=== PATIENT | male | born 1955 ===

== ENCOUNTER 2021-05-21 05:33 | Inpatient (IN) | payer MEDICAID ==
[~2021-05-21] VITALS: Ht 185.4 cm; Wt 86.2 kg
[2021-05-21] MEDS ORDERED: HYDROMORPHONE 1 MG/1 ML DISP.SYRIN IV ONE (05:45)
[2021-05-21] MEDS ORDERED: CEFAZOLIN 1 G in IV DEXTROSE 5% 50 ML IV ONE (05:45)
[2021-05-21] MEDS ORDERED: IV NORMAL SALINE 1000 ML BAG IV ONE (05:45)
[2021-05-21] MEDS ORDERED: ONDANSETRON 4 MG/2 ML VIAL IV ONE (05:45)
--- NOTE | 2021-05-21 06:27 | NUR ---
REPORT GIVEN TO GEOVANY FELIX
[2021-05-21] MEDS ORDERED: VANCOMYCIN IV 1,000 MG in IV DEXTROSE 5% 250 ML IV ONE (06:45)
[2021-05-21 06:52] LABS: MEAN CORPUSCULAR HEMOGLOBIN 30.2 uug (23.8-33.4); PLATELET COUNT (AUTO) 173 K/uL (152-348)
[2021-05-21] MEDS: PANTOPRAZOLE SODIUM 40 MG TABLET.DR PO SCH (07:00)
[2021-05-21 07:20] LABS: BILIRUBIN,DIRECT 0.4 mg/dL (0.0-0.2); BILIRUBIN,TOTAL 1.4 mg/dL (0.2-1.0); CREATININE 1.6 mg/dL (0.6-1.3); POTASSIUM 3.5 mmol/L (3.5-5.1); TOTAL PROTEIN, SERUM 7.7 g/dL (6.4-8.2)
[2021-05-21] MEDS ORDERED: CEFAZOLIN 1 G VIAL ONE (07:24)
[2021-05-21] MEDS ORDERED: HYDROMORPHONE 2 MG/1 ML DISP.SYRIN ONE (07:25)
[2021-05-21] MEDS ORDERED: ONDANSETRON 4 MG/2 ML VIAL ONE (07:25)
[2021-05-21] MEDS ORDERED: VANCOMYCIN IV 200 ML ONE (07:26)
--- NOTE | 2021-05-21 07:30 | NUR ---
Assumed care for patient. No nurse to nurse report received from retail shift manager as there was no assigned nurse for this pt upon my arrival. Pt resting in gurney with eyes closed with no s/s of acute distress noted at this time. V/S: BP 159/91 HR 107 RR 18 Pulse ox 96% (RA).
--- NOTE | 2021-05-21 10:30 | NUR ---
spoke with Leonidas ([facility]), pt has been accepted for m/s admission, admission dx:cellulitis.
--- NOTE | 2021-05-21 10:40 | NUR ---
Pt resting with NAD noted. Pending M/S admission, no beds available at this time.
[2021-05-21] MEDS ORDERED: ACETAMINOPHEN 325 MG TABLET PO PRN (11:00)
[2021-05-21] MEDS ORDERED: IV NS 1000 ML 1,000 ML IV PRN (11:00)
[2021-05-21] MEDS ORDERED: ONDANSETRON 4 MG/2 ML VIAL IV PRN (11:00)
[2021-05-21] MEDS ORDERED: REMEDY ESSENTIAL ZINC PASTE 113 GM TP PRN (11:00)
[2021-05-21] MEDS ORDERED: HYDROCODONE/APAP 5-325MG TABLET PO PRN (11:00)
[2021-05-21] MEDS ORDERED: HYDROMORPHONE 1 MG/1 ML DISP.SYRIN IV PRN (11:00)
[2021-05-21] MEDS: CEFTRIAXONE 2 G in IV DEXTROSE 5% 100 ML IV SCH (11:33)
[2021-05-21] MEDS ORDERED: CEFTRIAXONE 1 G VIAL ONE (11:34)
--- NOTE | 2021-05-21 13:00 | NUR ---
Pt ate lunch with good appetite, NAD noted, VSS. Pt is anxous and somewhat agitated because he is worried about his car. Pt states he lives in his car and all his belongings are in the car. He states it is parked in a parking lot where the EMS picked him up last night. Pt does not know the exact location and I was unable to find any information about which EMS unit brought the pt in last night.
--- NOTE | 2021-05-21 15:30 | NUR ---
SBAR report given to Jayshree on m/s floor.
--- NOTE | 2021-05-21 15:50 | NUR ---
Pt trans to m/s floor, NAD noted.
--- NOTE | 2021-05-21 16:38 | NUR ---
65 YEAR OLD MALE RECEIVED FROM ER VIA GURNEY TO ROOM 316 FOR LLE CELLULITIS .PT IS AXOX2.CALL LIGHT WITH IN REACH VS ARE STABLE MD NOTIFIED FOR ADMISSION ORDERS
[2021-05-21 16:41] VITALS: BP 151/80
[2021-05-21 20:30] VITALS: BP 148/65
[2021-05-22] MEDS ORDERED: VANCOMYCIN IV 1,000 MG in IV DEXTROSE 5% 250 ML IV SCH (01:00)
[2021-05-22 04:41] VITALS: BP 142/64
[2021-05-22] MEDS: PANTOPRAZOLE SODIUM 40 MG TABLET.DR PO SCH (06:07)
[2021-05-22 07:07] LABS: HEMATOCRIT 34.3 % (36.7-47.1); MEAN CORPUSCULAR HEMOGLOBIN 29.8 uug (23.8-33.4); MEAN CORPUSCULAR VOLUME 87.1 fL (73.0-96.2); PLATELET COUNT (AUTO) 133 K/uL (152-348)
[2021-05-22 07:22] LABS: BILIRUBIN,TOTAL 0.9 mg/dL (0.2-1.0); CREATININE 1.4 mg/dL (0.6-1.3); MAGNESIUM 1.5 mg/dL (1.8-2.4); POTASSIUM 3.2 mmol/L (3.5-5.1); TOTAL PROTEIN, SERUM 6.1 g/dL (6.4-8.2)
[2021-05-22 07:25] LABS: NEUTROPHILS % (MANUAL) 0 % (42-75)
--- NOTE | 2021-05-22 07:45 | NUR ---
Received in bed responsive. No acute distress. Comfortable on room air. IVF infusing no infiltration noted on site. Appears comfortable. Bed low and locked. Siderails up x2. Call light in reach.
[2021-05-22] MEDS ORDERED: POTASSIUM CHLORIDE 20 MEQ TAB.PRT.SR PO ONE (09:15)
[2021-05-22] MEDS: MAGNESIUM SULFATE/D5W 100 ML IV SCH ×2 (09:23→10:32)
[2021-05-22 11:45] VITALS: BP 140/74
[2021-05-22] MEDS: CEFTRIAXONE 2 G in IV DEXTROSE 5% 100 ML IV SCH (11:45)
--- NOTE | 2021-05-22 11:51 | NUR ---
Clinical Social Work Note SW consult was requested for homelessness. SW met with 65 year old male who is alert and oriented x3. Patient presents with a depressed mood and congruent affect. SW inquired about patient's living situation. Per patient he has been living out of his car for years and currently his car is being towed from the [employer] center. Patient insisted that he needed to stop his car from being towed. SW helped find patient [address] number and patient stated that he will be calling. SW provided patient with homeless packet and discussed shelters. Patient stated that he would look through packet and would make a decision on a nursing home by himself. Patient stated that he does need TAP car to get to his car after he is discharge. Patient will sign homeless waiver upon discharge.
[2021-05-22] MEDS: VANCOMYCIN IV 1,250 MG in IV DEXTROSE 5% 250 ML IV SCH (13:09)
[2021-05-22 15:56] VITALS: BP 138/96
--- NOTE | 2021-05-22 18:05 | NUR ---
pt stated he does not have any home medications.
[2021-05-22 19:00] VITALS: BP 156/87
--- NOTE | 2021-05-22 19:00 | NUR ---
PATIENT ALERT ORIENTED, NO SOB NO CHEST PAIN, NO COMPLAIN OF PAIN AT THIS TIME, CONT TO MONITOR.
--- NOTE | 2021-05-22 22:56 | NUR ---
PATIENT CRAVING FOR CIGARETTES, NOTIFY AYSE FIELD HAULER WITH ORDER.
--- NOTE | 2021-05-22 22:57 | NUR ---
PATIENT HAS EPISODE OF SCREAMING, THINKING ABOUT HIS CAR, HIS CAR MARK, AND UPSET WITH THE POLICE DUE CONFISCATING HIS CAR MARK. COMPLAINING OF PAIN, GIVEN PAIN MEDS, AND WILL NOTIFY SW DUE TO CONCERN ABOUT HIS CAR.
[2021-05-22] MEDS: NICOTINE 14 MG/24HR PATCH TD SCH (23:11)
--- NOTE | 2021-05-23 00:59 | NUR ---
PATIENT HAS EPISODE OF AGITATION, YELLING AND SCREAMING, PULLED OUT HIS IV LINES, RN KINDERGARTEN PREP TEACHER SPOKE TO THE PATIENT IF HE WANTED TO LEAVE HE WILL BE DISCHARGE, OR IF HE WANTED STAY HE NEEDS TO BEHAVE, NO YELLING NO SCREAMING, AND BANGING THE TABLE. PATIENT PREFER TO STAY, AND AGREE WITH RULES OF THE HOSPITAL. NOTIFY NATHALIA HINES WITH ORDER OF ATIVAN 1MG IV ONCES FOR AGITATION.
[2021-05-23] MEDS ORDERED: LORAZEPAM 2 MG/1 ML VIAL IV ONE (01:00)
[2021-05-23] MEDS: VANCOMYCIN IV 1,250 MG in IV DEXTROSE 5% 250 ML IV SCH (04:21)
[2021-05-23 05:45] VITALS: BP 153/97
[2021-05-23] MEDS: PANTOPRAZOLE SODIUM 40 MG TABLET.DR PO SCH (06:22)
[2021-05-23 06:45] LABS: HEMATOCRIT 35.1 % (36.7-47.1); MEAN CORPUSCULAR HEMOGLOBIN 29.9 uug (23.8-33.4); MEAN CORPUSCULAR VOLUME 87.9 fL (73.0-96.2); PLATELET COUNT (AUTO) 156 K/uL (152-348)
--- NOTE | 2021-05-23 06:59 | NUR ---
PATIENT ASLEEP BUT AROUSABLE, PATIENT COOPERATIVE WITH CARE AT THIS TIME, NO YELLING NO SCREAMING, NO BEHAVIOR NOTED AT THIS TIME, PATIENT LLE HAS DRIED CELLULITIS, MEDICATED FOR PAIN AND COMFORT, NO ADVERSE REACTION NOTED FROM ATIVAN 1MG IV, ENDORSE TO NEXTG SHIFT.
[2021-05-23 07:13] LABS: CREATININE 1.4 mg/dL (0.6-1.3); MAGNESIUM 2.2 mg/dL (1.8-2.4); PHOSPHOROUS 2.9 mg/dL (2.5-4.9); POTASSIUM 3.7 mmol/L (3.5-5.1)
--- NOTE | 2021-05-23 07:45 | NUR ---
PATIENT IN BED AWAKE SLIGHTLY AGITATED STATED AND WANTS TO GO HOME. REINFORCED IMPORTANCE OF STAYING AND CONT WITH PLAN OF CARE. INFORMED HIM WE'LL WAIT FOR THE MD TO ROUND. PT AGREED TO STAY AND WAIT FOR THE DOCTOR. KEPT COMFORTABLE. IV INFUSING ORDERED NO INFILTRATION NOTED. CALL LIGHT AND PERSONAL BELONGINGS IN REACH.
[2021-05-23] MEDS ORDERED: AMLODIPINE 5 MG TABLET PO SCH (09:00)
[2021-05-23 09:05] VITALS: BP 145/85
[2021-05-23] MEDS: NICOTINE 14 MG/24HR PATCH TD SCH (09:05)
[2021-05-23] MEDS ORDERED: SULF1TAB48 PO (10:23)
[2021-05-23] MEDS ORDERED: AMOX-430 PO (10:23)
[2021-05-23] MEDS ORDERED: AMLO-212 PO (10:23)
[2021-05-23] MEDS ORDERED: SULFAMETH/TRIMETH 800/160 MG TABLET PO ONE (10:30)
[2021-05-23] MEDS: CEFTRIAXONE 2 G in IV DEXTROSE 5% 100 ML IV SCH (10:31)
--- NOTE | 2021-05-23 10:46 | NUR ---
WOUND CARE CONSULT: PT PRESENTS WITH LEFT LOWER LEG REDNESS AND SWELLING, NO OPEN WOUNDS, PRESENT ON ADMISSION. RECOMMENDATIONS MADE FOR SKIN PROTECTION. DISCUSSED IMPORTANCE OF LEG ELEVATION WITH NURSING STAFF AND PT. MD IN AGREEMENT WITH PLAN OF CARE.
--- NOTE | 2021-05-23 11:51 | NUR ---
DISCHARGE INSTRUCTIONS RELAYED TO PATIENT AND HE VERBALIZED UNDERSTANDING. HE STATED HE HAS HOMELESS RESOURCES PROVIDED BY ENGINEERING AND OPERATIONS DIRECTOR AND WILL DECIDE WHEN HE GETS TO HIS CAR. PROVIDED TAP CARD REQUESTED. IV REMOVED NO BLEEDING NOTED.
[2021-05-23] MEDS ORDERED: AMOXICILLIN-CLAVUL 875-125MG TABLET PO ONE (12:00)
--- NOTE | 2021-05-23 12:00 | NUR ---
PATIENT REFUSED TO EAT LUNCH
--- NOTE | 2021-05-23 12:15 | NUR ---
DISCHARGED IN STABLE CONDITION. HAS ALL HIS BELONGINGS. TAP CARD PROVIDED. STABLE.
--- NOTE | 2021-05-23 13:45 | NUR ---
KENZIE Clinical Note: Pt is alert and oriented x4. Pt appeared anxious and irritable due to wanting to leave. Pt became teary and stated, "I just want to go." KENZIE provided pt with a homeless waiver form with attached referrals to homeless shelters for pt to have access to post discharge from [facility]. KENZIE attempted to call the [employer] ([phone]) since pt reported his car was parked there since 05/21/21. The market research manager at [employer] reported that, There is no 1999 Red Explorer vehicle in the parking lot today. KENZIE verbalized to the pt that the market research manager at [employer] stated his car was not in the [employer] parking lot. telephone worker offered to provide a bus pass to patient upon discharge. Pt initially agreed with the discharge plan but later refused assistance and stated, I am leaving now on my own thank you for your help. Pt signed the homeless waiver form while waiting for his medication to leave with. KENZIE attached a copy of the signed homeless waiver form in patients chart. KENZIE provided patient with a copy of the [facility] homeless directory which provides information on locations for hot meals, sack lunches, food pantries, and showers. KENZIE provided a list of mental health clinics: [facility] [address] [place] [address], ; [facility] [address] [place] [address], ; [facility] [address] [place] [address], ; a list of medical clinics: [facility] [address], [place]. [place], ; [facility] [address], [place] [address]; [facility] [address] [facility] [place] [place] [address], ; and a list of substance abuse programs: [facility] Substance Abuse Self-helpline ; [facility] ; [facility] ; [facility] ; [facility] ; [facility] [phone]; [facility] [phone]. Patient signed the homeless waiver form and a copy was placed in the chart.
== END 2021-05-23 12:15 | disposition home or self-care (01) | DRG 383 ==
LOC: ER 05:37 → MEDSURG3 15:38
PROVIDERS: ADMIT Hospitalist; ATTEND Nurse Practitioner Family
DX: L03.116 Cellulitis of left lower limb (principal); N17.0 Acute kidney failure with tubular necrosis; E43 Unspecified severe protein-calorie malnutrition; F17.210 Nicotine dependence, cigarettes, uncomplicated; E83.42 Hypomagnesemia; E86.1 Hypovolemia; E87.6 Hypokalemia; E88.09 Other disorders of plasma-protein metabolism, not elsewhere classified; I10 Essential (primary) hypertension; J98.11 Atelectasis; Z20.822 Contact with and (suspected) exposure to COVID-19; Z59.00 Homelessness unspecified; D72.829 Elevated white blood cell count, unspecified; E87.1 Hypo-osmolality and hyponatremia
CPT/HCPCS: 36415; 70030-TC; 71045; 83605; 83735; 84100; 85025; 85730; 87040; 93005; 97161; A4663; G0378; J0690; J0696; J1170; J2060; J2405; J3370; J3475; J3490; J7030; J7060